=== PATIENT | male | born 1965 | race Caucasian/White ===

== ENCOUNTER 2016-10-09 08:42 | Inpatient (IN) | payer OTHER ==
--- NOTE | ~2016-10-09 | CO ---
Unit #: [id number] #: [id number] Patient: GRABIEL AHUJA [id number] [address] [place], [place] [address] [id number] MR#: [id number] NAME: GRABIEL AHUJA ROOM: [facility] Age: 51 Sex: M Admission Date: 10/09/2016 : 1965 Attending Physician: Krystle Blanchard M.D. Primary Care Physician: Blaine Narvaez M.D. Requesting Physician: Krystle Blanchard M.D. Consultation Date: 10/09/2016 CONSULTATION REPORT REASON FOR CONSULTATION Submassive acute pulmonary embolism. HISTORY OF PRESENT ILLNESS The patient is 51 years old with a history of a right lower extremity deep venous thrombosis approximately 20 years ago, for which he was anticoagulated with warfarin. He describes a delay in diagnosis, as this followed a traumatic injury. He was seen in the emergency room on 10/09/2016 complaining of a 2-week history of pain and swelling of his right calf, which actually has gotten better today. This is accompanied by a 5-day history of shortness of breath, productive cough, fever and chills, and as his children had had influenza, he attributed it to influenza symptoms. With pressure-like chest pain, he presented to the emergency room where he underwent CT angiogram of the chest after finding an elevated D-dimer. CT angiogram of the chest revealed a large pulmonary embolic burden with large saddle embolus across the main pulmonary artery with extension to the truncus anterior, right middle lobe segmental arteries and a complete occlusion of the right lower lobe pulmonary artery. He also had small mediastinal nodes. He has since been seen in consultation by cardiology who was planning an EKOS procedure, and Dr. Wu of pulmonary who plans to move him to the intensive care unit. Mr. Ahuja tells me that he is somewhat short of breath, but as soon as he exerts himself, ___<dictation goes blank>____ pressure-like chest pain. PAST MEDICAL HISTORY Prior history of DVT and pulmonary embolism, as discussed. No significant past medical problems. PAST SURGICAL HISTORY Finger surgery, tonsillectomy. FAMILY HISTORY No history of blood clots. SOCIAL HISTORY Smokes a pack a day. 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 Rarely drinks any alcohol. He is and lives with his who is a registered nurse. REVIEW OF SYSTEMS A 14-point review of systems was taken. CONSTITUTIONAL: No recent changes in appetite or weight. EYES: Negative. EARS, NOSE, MOUTH AND THROAT: Negative. CARDIOVASCULAR: Pressure-like chest pain, as discussed. No palpitations. Unit #: [id number] #: [id number] Patient: GRABIEL AHUJA RESPIRATORY: Shortness of breath. No (1) cough or hemoptysis. GASTROINTESTINAL: Negative. GENITOURINARY: Negative. NEUROLOGIC: Negative. ALLERGIC/LYMPHATICS: Negative. MUSCULOSKELETAL: Pain and discomfort in the right calf, which is actually now better. SKIN: Negative. PSYCHIATRIC: Negative. PHYSICAL EXAMINATION GENERAL: He is a pleasant, middle-aged man lying in bed in mild distress secondary to shortness of breath. VITALS: Temperature is 98.5, pulse 108, respirations 20, blood pressure 132/89. He weighs 298 pounds. BMI is 40. Pulse oximetry is 94% on oxygen. HEENT: Head examination shows pupils are equal and react well to light. Mucous membranes are moist. NECK: Neck without adenopathy, JVD or thyromegaly. CARDIOVASCULAR SYSTEM: First and second heart sounds were heard and regular with mild tachycardia. LUNGS: Chest expansion is symmetric. Bilateral equal entry with normal breath sounds. ABDOMEN: Abdomen is soft, nontender. Bowel sounds are active. No organomegaly. EXTREMITIES: Extremities are warm. He has mild swelling of his right calf in relation to the left with some calf tenderness. SKIN: Negative. ALLERGIC/LYMPHATICS: Negative. NEUROLOGIC: He is awake, alert and oriented x3. No focal findings. DIAGNOSTIC STUDIES LABS: BNP of 30. Troponin is 0.41. A ProTime is 10.7, INR 1, PTT 25. Basic metabolic panel shows a BUN of 17, creatinine 1.1. LFTs are normal. CBC shows a white count of 6.4, hemoglobin 15.8, platelets 146,000. IMAGING: CT angio of the chest was personally reviewed by me, and findings are as discussed. ASSESSMENT AND PLAN Mr. Grabiel Ahuja is 51 years old with history of DVT in the past, admitted with an acute right lower extremity DVT with acute submassive pulmonary embolism with a saddle thrombus. He is tachycardic and hypoxemic on room air with chest pain on exertion. He has been scheduled for an EKOS procedure, following which he will be transferred to the intensive care unit. He is currently on a heparin weight-based protocol. I discussed with the patient. I agree with plans for heparin weight-based protocol, EKOS and ICU transfer. After stable, may consider switching to a direct oral anticoagulant, preferably after 3-5 days of IV heparin. He is scheduled to have a Doppler study of the right lower extremity, and based upon the clot burden, he may be a candidate for (2) IVC filter, as well. Plans were discussed in detail with the patient, as well as the at bedside. Thank you for allowing me to participate in his care. Dictated by... Unit #: [id number] #: [id number] Patient: GRABIEL AHUJA Juju Cotton/eriberto TD: 10/10/2016 09:10 JOB #: [id number] CONSULTATION REPORT X Bonilla Perez MD X CONSULTATION REPORT
--- NOTE | ~2016-10-09 | CT16 ---
[facility] A Service of [facility] RADIOLOGY TEXT RESULTS PATIENT: NANCY COSME LOCATION: [facility] 577-01 : [birth year] UNIT #: [id number] AGE: [address]: Prisca Osorio MD SEX: M ORDER DR: [id number] [facility] [address] [facility]. [place], [place] [address] [id number] I MR#: [id number] Acc #: [id number] NAME: NANCY COSME : 1965 SEX: M STUDY DATE/TIME: 10/09/2016 10:12 [facility] 26115 STUDY DESCRIPTION: CT Angio Chest for PE Attending Physician: Krystle Blanchard M.D. Ordering Physician: Jorge Carr M.D. Primary Care Physician: Blaine Narvaez M.D. MEDICAL IMAGING REPORT This report is preliminary unless electronic signature is present EXAM CT angiography chest for PE. HISTORY Cough, short of air this a.m., history of PE and leg clots. Smoker. TECHNIQUE CT of the chest performed with CT pulmonary angiography with administration of 80 mL Isovue-370. Three-dimensional reconstructions performed through pulmonary arteries. This CT exam was performed with one or more of the following radiation dose reduction techniques: automatic exposure control, adjustment of mA and/or kV according to patient size, and iterative reconstruction. COMPARISON STUDIES No prior chest CTs for comparison. FINDINGS Visualized thyroid unremarkable. No axillary adenopathy. Bilateral mild and symmetric gynecomastia. Correlate with risk factors. Mildly enlarged mediastinal lymph nodes. There is an aortopulmonary window node measuring about 1.3 cm in short axis. Right paratracheal node measuring about 1.1 cm in short axis and subcarinal node measuring 1.2 cm in short axis. Followup recommended. Heart normal in size. No pleural effusions. Probable fatty infiltration of liver. No suspicious focal hepatic parenchymal abnormality. At the gallbladder fundus, there is a subtle area of rounded increased density measuring about 1.1 cm to 1.5 cm. This is in the anti-dependent portion of the gallbladder and is not have the typical appearance of a gallbladder polyp or gallstone. There is no adjacent inflammatory change. This may represent an unusual configuration of polyp or decompressed phrygian cap. In the absence of prior comparison studies, assessment with elective ultrasound recommended. No biliary STS. [facility] A Service of [facility] RADIOLOGY TEXT RESULTS PATIENT: NANCY COSME LOCATION: [facility] 577-01 : [birth year] UNIT #: [id number] AGE: [address]: Prisca Osorio MD SEX: M ORDER DR: ductal dilatation. Spleen, pancreas, adrenal glands, upper renal poles unremarkable. There is a 1.6 cm short-axis node superior to the pancreatic neck. The small bowel mesentery, partially visualized, shows some subtle mesenteric haziness and at least 1 mildly enlarged 9 mm short-axis lymph node. The esophagus, stomach, visualized segments of small bowel and colon are remarkable. Pulmonary parenchyma shows band-like area of density at the posterior right apex measuring about 4.9 cm x 1.6 cm x 2 cm. This is favored to represent an area of fibrosis or unusual area of apical pneumonia. Given findings of extensive pulmonary emboli, the possibility of apical pulmonary infarct is not excluded. Short interval followup recommended. 6-7 mm subpleural nodule posterior right upper lobe image 48. Followup recommended. 6 mm noncalcified pulmonary nodule superior segment right lower lobe image 51. Linear scarring right lung base posteriorly. Left upper lobe clear. Densely calcified granuloma in the left lung base posterolaterally. Noncalcified nodule left lung base posterolaterally near diaphragm measuring 7-8 mm in diameter. Subpleural nodular density posterior left lung base measuring 9 mm x 1.7 cm image 126. Again, a nonspecific appearance which could represent area of atelectasis, true nodule, or perhaps small area of pulmonary infarct. Pulmonary arteries are well opacified. Large pulmonary embolic burden with large saddle embolus across the main pulmonary arteries. On the right, there is extension into the truncus anterior. There is occlusion of the intralobar artery. There is thrombus extension into right middle lobe segmental arteries. Near-complete occlusion of the right lower lobe pulmonary artery with extension into multiple segmental and probably segmental and probably subsegmental right lower lobe pulmonary arteries. The clot burden is less pronounced but still significant on the left with thrombus extending into the left apical segmental pulmonary artery, anterior segmental pulmonary artery, with nonocclusive emboli in the lingular segmental pulmonary arteries and nonocclusive emboli in left lower lobe pulmonary artery and multiple proximal segmental pulmonary arteries. These findings were discussed directly with Dr. Willingham at 1049 hours during this dictation. There is evidence of right heart strain. The right ventricle is visually more pronounced than the left with an RV/LV ratio approximately 1.4. The aorta is well opacified without evidence of aneurysm or dissection. The visualized aortic branch vessels are patent. The bony structures show no acute abnormality. IMPRESSION 1. Abnormal examination. See complete dictation above for full details. Extensive bilateral pulmonary emboli. Findings discussed with Dr. Willingham at 1049 hours during this dictation. There is a large saddle embolus spanning the right and left main pulmonary arteries. Clot burden generally more pronounced in the right lung than the left. Involvement of right truncus anterior, right middle lobe pulmonary artery with occlusion of the right intralobar pulmonary artery and STS. [facility] A Service of [facility] RADIOLOGY TEXT RESULTS PATIENT: NANCY COSME LOCATION: [facility] 577-01 : [birth year] UNIT #: [id number] AGE: [address]: Prisca Osorio MD SEX: M ORDER DR: near occlusion of the right lower lobe pulmonary artery with extensive thrombus extension into right lower lobe segmental and probable subsegmental pulmonary arteries. In the left lung, there is significant but less pronounced clot burden. Near occlusive embolus seen in right upper lobe anterior segment, occlusive embolus in the left upper lobe segmental pulmonary artery. nonocclusive emboli in the superior and inferior lingular segmental arteries, and large but nonocclusive emboli in the left lower lobe pulmonary artery and proximal segmental pulmonary arteries. There is evidence of right heart strain with an RV/LV ratio of approximately 1.4. 2. Band-like area of subpleural airspace disease posterior-superior right lung apex measuring approximately 1.6 cm x 4.8 cm x 2 cm. Nonspecific appearance. This may represent an area of asymmetric subpleural fibrosis, unusual manifestation of pneumonia might be considered. Given the extent of embolic burden in this patient, an apical pulmonary infarct is in the differential diagnosis. Short interval followup recommended. 3. 6 mm noncalcified pulmonary nodule posterior right upper lobe image 48, 6 mm right lower lobe superior segment noncalcified nodule image 51, 9 mm x 1.7 cm noncalcified nodular density left lung base image 126, and 7-8 mm noncalcified nodule left lung base laterally image number 130. Nature of these non-calcified densities is unclear. The left posterior basilar finding could be atelectatic in nature or a small infarct. Short-interval 3-month CT followup strongly recommended to assess for short-term stability or resolution. If the dominant abnormalities increase in size or persist, I would recommend CT PET scan assessment to evaluate for potential neoplastic nodule. 4. Densely calcified granuloma at the left lung base. 5. Fatty infiltration of the liver. 6. Mildly enlarged mediastinal nodes, probably reactive in nature. See dimensions and locations above. Attention at followup recommended. 7. Mildly enlarged portal lymph node probably reactive in nature as well. Attention at followup recommended. 8. 1.1 cm x 1.5 cm density along the wall of the gallbladder fundus, not having typical appearance for gallstones or polyp. Atypical polyp is a consideration. Other types of gallbladder wall mass not excluded. Correlation with fasting gallbladder ultrasound recommended. 9. Bilateral gynecomastia. Correlate with risk factors. Dictated by... Luis Thayer M.D. THIS IS AN ELECTRONICALLY VERIFIED REPORT Luis Thayer M.D. at 10/11/2016 5:52 PM LAINA/reny TD: 10/09/2016 13:37 [facility]. [facility] A Service of [facility] RADIOLOGY TEXT RESULTS PATIENT: NANCY COSME LOCATION: [facility] 577-01 : [birth year] UNIT #: [id number] AGE: [address]: Prisca Osorio MD SEX: M ORDER DR: JOB #: [id number] MEDICAL IMAGING REPORT COPY
--- NOTE | ~2016-10-09 | HP ---
Unit #: [id number] #: [id number] Patient: NANCY COSME [id number] [address] [address] [id number] MR#: [id number] NAME: NANCY COSME ROOM: Age: 51 Sex: M Admission Date: 10/09/2016 : 1965 Attending Physician: Jorge Carr M.D. Primary Care Physician: Blaine Narvaez M.D. HISTORY AND PHYSICAL ADDENDUM Thirty one minutes critical care time spent in the care of this patient (12 o'clock to 12:31 p.m.). Dictated by Juju Acevedo/evelyn TD: 10/09/2016 13:05 JOB #: [id number] HISTORY AND PHYSICAL X Krystle Blanchard MD HISTORY AND PHYSICAL
--- NOTE | ~2016-10-09 | EKG ---
PATIENT: NANCY COSME UNIT #: [id number] Ventricular Rate: 102 BPM Atrial Rate: 102 BPM P-R Interval: 142 ms QRS Duration: 114 ms Q-T Interval: 352 ms QTC Calculation(Bezet): 458 ms P [place]: 73 degrees Calculated R [place]: 59 degrees Calculated T [place]: 21 degrees Diagnosis Line: Sinus tachycardia Diagnosis Line: Incomplete right bundle branch block Diagnosis Line: Nonspecific T wave abnormality Diagnosis Line: Abnormal ECG Diagnosis Line: No previous ECGs available Diagnosis Line: Confirmed by SHEILA RIVERA MD ([id number]) on Diagnosis Line: 10/10/2016 11:46:12 AM INTERPRETING MD: SANDEEP
--- NOTE | ~2016-10-09 | CO ---
Unit #: [id number] #: [id number] Patient: NANCY COSME [id number] [address] [place], [place] [address] [id number] I MR#: [id number] NAME: NANCY COSME ROOM: [facility] Age: 51 Sex: M Admission Date: 10/09/2016 : 1965 Attending Physician: Krystle Blanchard M.D. Primary Care Physician: Blaine Narvaez M.D. CONSULTATION REPORT REASON FOR CONSULTATION Pulmonary embolus. HISTORY OF PRESENT ILLNESS This is a 51-year-old white male, who presented to the emergency room with dyspnea. He was getting ready to take his children to school and had a sudden onset of dyspnea after a cough. He felt lightheaded and felt maybe he could pass out. His who is an RN took his oxygen saturation level which she states was 82%. They came to the emergency room for evaluation, where he had an elevated D-dimer of 9834. CTA of the chest revealed saddle pulmonary emboli with embolus in both left and right segmental and subsegmental lobes. Doppler study of his lower extremity was negative for deep vein thrombosis. The patient states he had a right DVT 20 years ago after an accident. He was heparinized in the hospital for 2 weeks and once discharge was started on Coumadin that he says went for a total of 6 months. He also revealed he has had some dyspnea for the past few days, but thought it was a flu. One of his daughters was diagnosed with influenza A. He denies a history of hypertension, hyperlipidemia, or diabetes. His risk factors for heart disease includes nicotine abuse and obesity. No prior cardiac testing. PAST MEDICAL HISTORY 1. Right DVT 20 years ago. 2. Obesity. 3. Active smoker. PAST SURGICAL HISTORY 1. Finger surgery. 2. Tonsillectomy. 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 He smokes a pack of cigarettes daily. He denies illicit drug or alcohol use. FAMILY HISTORY Father had a permanent pacemaker. Has a brother, who has hypertension and hyperlipidemia. REVIEW OF SYSTEMS CONSTITUTIONAL: Positive for recent fever and chills. Reports no weight gain or weight loss. HEENT: No headache, hearing or vision changes, or difficulty with swallowing. Complains of lightheadedness. Unit #: [id number] #: [id number] Patient: NANCY COSME CARDIOVASCULAR: Had chest pressure that accompanied dyspnea. Positive for nonproductive cough. No hemoptysis. GASTROINTESTINAL: No abdominal pain, nausea, or vomiting. No constipation or melena. EXTREMITIES: Has occasional right lower extremity edema. PHYSICAL EXAMINATION VITAL SIGNS: Blood pressure 129/86, heart rate 116, temperature 97.5. BMI 39. GENERAL: This is a 51-year-old obese, white male, who is in no acute distress. NEUROLOGIC: He is awake, alert, and oriented without focal weaknesses. NECK: Trachea is midline. No thyromegaly or lymphadenopathy. No jugular venous distention. HEART: S1 and S2. Heart sounds are normal. No murmurs. No rubs or clicks. Regular rate and rhythm, just tachycardic. LUNGS: Diminished breath sounds without rales, rhonchi, or wheezing. ABDOMEN: Soft and obese with bowel sounds present. No organomegaly. EXTREMITIES: With trace right lower extremity edema. DIAGNOSTIC STUDIES LABORATORY RESULTS: Hemoglobin 15.3, hematocrit 48.1, platelet count 146, white count 6.4. Sodium 142, potassium 4.5, BUN 17, creatinine 1.1, glucose 128. D-dimer 9834. Troponin less than 0.05. IMAGING STUDIES: Chest x-ray shows no active disease. CTA of the chest shows bilateral saddle pulmonary embolism with right heart strain. Bilateral lower extremity segmental and subsegmental emboli. CARDIOVASCULAR STUDIES: EKG shows sinus tachycardia with incomplete right bundle-branch block. IMPRESSION 1. Acute saddle pulmonary emboli. 2. Sinus tachycardia. 3. History of right deep vein thrombosis. 4. Obesity. 5. Nicotine abuse. PLAN 1. Cardiology was consulted for pulmonary emboli. The patient has been started on heparin drip. He is currently stable. 2. The patient needs EKOS for pulmonary embolism. He has had no recent head trauma, intracranial hemorrhage, and surgeries of any sort or urinary hemorrhage. He meets the criteria for EKOS. Risks, benefits, and procedure was explained to the patient and and they are agreeable. We will schedule for later today. 3. 2D echocardiogram is pending to verify right heart strain. Right heart strain was noted on CTA of the chest. 4. The patient will be monitored in the intensive care unit. Dictated by... Paulie Crane A.P.R.N. for Juju Dexter/ally Unit #: [id number] #: [id number] Patient: NANCY COSME TD: 10/09/2016 23:43 JOB #: [id number] CONSULTATION REPORT X Paulie Crane APRN X CONSULTATION REPORT
--- NOTE | ~2016-10-09 | DS ---
Unit #: [id number] #: [id number] Patient: NANCY COSME [address] [facility]. [place], [place] [address] [id number] I MR#: [id number] NAME: NANCY COSME ROOM: 577 Age: 51 Sex: M Admission Date: 10/09/2016 : 1965 Discharge Date: 10/12/2016 Attending Physician: Prisca Osorio M.D. Primary Care Physician: Blaine Narvaez M.D. DISCHARGE SUMMARY DIAGNOSIS ON ADMISSION Pulmonary embolism. DIAGNOSES ON DISCHARGE 1. Bilateral submissive pulmonary embolism. 2. Acute right lower extremity deep venous thrombosis. 3. Acute respiratory failure, resolved. 4. Right heart stent, resolved. 5. Hypertension. CONSULTATIONS 1. Dr. Chaparro - Cardiology consultation. 2. Dr. Wu - Pulmonary consultation. LABS AND PROCEDURES DONE The patient's creatinine is 1.1, sodium 139, potassium is 4.4. AST and ALT are within normal limits. WBC is 8.7, hemoglobin is 15.3, platelet count is 139. CT scan of chest revealed large saddle embolus panning the right and left main pulmonary artery. Clot burden generally more pronounced on the right than the left. There was a 6 mm noncalcified pulmonary nodule in the posterior right upper lobe image. Fatty infiltration of liver. There was 1.1 cm x 1.5 cm density along the wall of gallbladder fundus, not having particular appearance of gallstone or polyp. Atypically, a polyp is a consideration. Other types of gallbladder wall mass cannot be excluded. Blood culture did not reveal any growth. Bilateral lower extremity venous Dopplers revealed near occlusive deep vein thrombosis involving the right superficial femoral and popliteal vein. Influenzae A and B screen was negative. Troponin was 0.41. HOSPITAL COURSE 51-year-old male presented to [facility] with shortness of air. Details are as per admission H and P. The patient was diagnosed with bilateral saddle PE and also has a right lower extremity DVT. The patient received EKOS treatment. The patient is feeling much better and today wants to go home. On physical examination today, vital signs reveal temperature of 97.9, Unit #: [id number] #: [id number] Patient: NANCY COSME pulse is 86 per minute, respiratory rate is 18 per minute, blood pressure is 121/83. HEENT examination reveals no conjunctival congestion. Sclerae is not icteric. NECK is supple. Trachea is central. RESPIRATORY examination revealed breath sounds equal bilaterally. There are no wheezes or crackles. HEART is regular rate and rhythm. S1, S2. ABDOMEN is soft, nontender. Bowel sounds are present in all four quadrants. NEUROLOGICALLY, the patient is alert to person, place and time. Power is 5 out of 5 bilaterally. Sensations are grossly intact. SKIN is warm and dry. RECOMMENDATIONS ON DISCHARGE 1. Condition is stable. 2. Activity as tolerated. MEDICATIONS 1. Tylenol 650 mg q.4 hours p.r.n. pain. 2. Xarelto 15 mg p.o. b.i.d. for three weeks and then 20 mg p.o. daily. 3. Lopressor 25 mg p.o. b.i.d. 4. Patient was encouraged to quit smoking. FOLLOWUP Patient is advised to follow up with primary care physician in one week and have a CBC and BMP done and follow with pulmonary and cardiology as recommended. The patient was also advised to follow up with Dr. Mijares as recommended who has seen patient today, and is advised to follow up as an outpatient. The plan was discussed in detail with the patient who showed complete understanding. Please make note - patient is very adamant to go home today as he feels good. Please make note - patient had a 2D echocardiogram done which revealed ejection fraction of 65%. There was severely dilated right ventricle present and there is mild to moderate tricuspid regurgitation also present. Echo was suspicious of PE. Dictated by... Juju Soler/willis TD: 10/12/2016 10:52 JOB #: [id number] CC: Kendell [place] M.D. Unit #: [id number] #: [id number] Patient: NANCY COSME DISCHARGE SUMMARY X Prisca Osorio MD DISCHARGE SUMMARY
--- NOTE | ~2016-10-09 | HP ---
Unit #: [id number] #: [id number] Patient: NANCY COSME [id number] [facility] [address] [facility]. [place], [place] [address] [id number] MR#: [id number] NAME: NANCY COSME ROOM: Age: 51 Sex: M Admission Date: 10/09/2016 : 1965 Attending Physician: Jorge Carr M.D. Primary Care Physician: Blaine Narvaez M.D. HISTORY AND PHYSICAL CHIEF COMPLAINT Short of air, cough. HISTORY OF PRESENT ILLNESS The patient is a 51-year-old male with past medical history of DVT/PE, who presented to the emergency department for evaluation of the above. The patient states that he has had a two-week history of pain in the right calf. He was seen in the emergency department on September 17, 2016. Venous Doppler was done at that time and showed no evidence of DVT in the right lower extremity. He also reports a four to five day history of shortness of breath, occasionally productive cough, body aches, fever and chills. He states that his daughters were diagnosed with influenza A on October 06, 2016. He attributed the symptoms to the flu. He also has had intermittent chest pain that he describes as "pressure." He presented to the emergency department today due to worsening shortness of breath. In the emergency department, initial pulse and blood pressure were 100 and 142/71 respectively. Oxygen saturation was 92% on room air. D-dimer was elevated. A CT of the chest, PE protocol, was done and showed saddle embolus with evidence of right heart strain. He is being admitted to [facility] for evaluation and further treatment. PAST MEDICAL HISTORY History of DVT/PE around 20 years ago. He was on Coumadin for an unknown duration. He never had a hypercoagulable workup. PAST SURGICAL HISTORY 1. Finger surgery. 2. Tonsillectomy. SOCIAL HISTORY The patient lives with his . He smokes a pack of cigarettes daily. 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 There is no alcohol use. FAMILY HISTORY Notable for his dad having a pacemaker. He is on blood thinner but the patient thinks that may be related to irregular heart beat. ALLERGIES None. HOME MEDICATIONS 1. Zyrtec. Unit #: [id number] #: [id number] Patient: NANCY COSME 2. Motrin. Home medications will need to be reviewed and verified. REVIEW OF SYSTEMS A 10-point review of systems is negative except as indicated in the HPI. DIAGNOSTIC STUDIES LABORATORY: Complete blood count is completely normal. Troponin is less than 0.05. Rapid flu screen is negative. Comprehensive metabolic panel notable for glucose of 128. INR is 1. D-dimer is 9834. IMAGING: CT of the chest, PE protocol, shows a saddle pulmonary embolus with evidence of right heart strain. CARDIOVASCULAR: EKG showed sinus tachycardia with a rate of 102 beats per minute. PHYSICAL EXAMINATION VITAL SIGNS: Temperature 97.5, pulse 100, respirations 22, blood pressure 142/71, oxygen saturation is 92% on room air. GENERAL: The patient is a male who is awake and alert. HEENT: The head is atraumatic. Mucous membranes are moist. NECK: Supple. Trachea is midline. CARDIOVASCULAR: Regular rate and rhythm. LUNGS: Clear to auscultation bilaterally. The patient is mildly short of breath with conversation. ABDOMEN: Soft, nontender with bowel sounds present in all four quadrants. EXTREMITIES: The right cath is slightly tender to palpation. There is no pitting edema. NEUROLOGIC: The patient is awake and alert. He follows commands. PSYCHIATRIC: Mood and affect are normal. The patient is cooperative. SKIN: Generally diaphoretic. ASSESSMENT The patient is a 51-year-old male with: 1. Saddle pulmonary embolus with evidence of right heart strain. I have spoken with Dr. Wu as well as Dr. Diaz regarding this patient. They agree to see him in consultation. He may benefit from EKOS. 2. Right calf pain: The patient had a negative venous Doppler on September 17, 2016. 3. History of pulmonary embolus/deep venous thrombosis. 4. Tobacco abuse. PLAN 1. Admit to intensive care unit. 2. NPO for possible EKOS procedure. 3. Normal sinus rhythm at 75 mL an hour. 4. Heparin drip per protocol. 5. High-intensity bolus as indicated to start now. 6. Consult Dr. Wu regarding saddle pulmonary embolus. 7. Consult Dr. Chaparro regarding saddle pulmonary embolus with right heart strain and possible need for EKOS. 8. STAT 2D echo. 9. Consult Dr. Lackey regarding pulmonary embolus. 10. Bilateral lower extremity venous Dopplers. 11. Serial cardiac enzymes. 12. Oxygen 2-4 L to maintain saturations greater than 92%. Unit #: [id number] #: [id number] Patient: NANCY COSME 13. Repeat labs in the morning. 14. Regarding code status, the patient is a full code. 15. Additional workup and consultants based on above. Dictated by Juju Acevedo TD: 10/09/2016 12:51 JOB #: [id number] HISTORY AND PHYSICAL X Krystle Blanchard MD HISTORY AND PHYSICAL
--- NOTE | ~2016-10-09 | CR72 ---
[facility] A Service of [facility] RADIOLOGY TEXT RESULTS PATIENT: NANCY COSME LOCATION: [facility] 577-01 : [birth year] UNIT #: [id number] AGE: [address]: Prisca Osorio MD SEX: M ORDER DR: [id number] [facility] [address] [facility]. [place], [place] [address] [id number] E MR#: [id number] Acc #: [id number] NAME: NANCY COSME : 1965 SEX: M STUDY DATE/TIME: 10/09/2016 8:03 UNIT: [facility] ROOM: STUDY DESCRIPTION: CR Chest Single View Portable Attending Physician: Jorge Carr M.D. Ordering Physician: Jorge Carr M.D. Primary Care Physician: Blaine Narvaez M.D. MEDICAL IMAGING REPORT This report is preliminary unless electronic signature is present EXAM Portable chest x-ray 10/09/2016 HISTORY Shortness of air, cough, short of air. Both daughters have flu. Patient had PE on . TECHNIQUE 2 AP radiographs of the chest are presented COMPARISON No prior studies for comparison FINDINGS The heart is upper limits of normal in size. The lungs are well inflated without evidence of acute infectious or inflammatory disease. No pleural effusion or pneumothorax. 1.8 cm nodular density projecting over the left lung base. This is probably a calcified and probably represents a calcified nodule but I cannot state this with surety. In the absence of prior studies demonstrating prolonged at least 2-year stability, full assessment with elective chest CT recommended. No acute bony abnormality. Dictated by... Luis Thayer M.D. THIS IS AN ELECTRONICALLY VERIFIED REPORT Luis Thayer M.D. at 10/11/2016 7:55 AM JSK/to TD: 10/09/2016 11:54 JOB #: [id number] [facility] A Service of [facility] RADIOLOGY TEXT RESULTS PATIENT: NANCY COSME LOCATION: [facility] 577-01 : [birth year] UNIT #: [id number] AGE: [address]: Prisca Osorio MD SEX: M ORDER DR: MEDICAL IMAGING REPORT COPY
--- NOTE | ~2016-10-09 | CO ---
Unit #: [id number] #: [id number] Patient: NANCY AHUJA [id number] [facility] [address] [facility]. [place], [place] [address] [id number] I MR#: [id number] NAME: NANCY AHUJA ROOM: 577 Age: 51 Sex: M Admission Date: 10/09/2016 : 1965 Attending Physician: Prisca Osorio M.D. Primary Care Physician: Blaine Narvaez M.D. Consultation Date: 10/10/2016 CONSULTATION REPORT REASON FOR CONSULT Right leg DVT. HISTORY OF PRESENT ILLNESS This is a 51-year-old male admitted to [facility] with increasing shortness of breath. CTA imaging demonstrated pulmonary embolism. Lower extremity ultrasound demonstrated right superficial femoral vein and popliteal vein near occlusive DVT. He has since undergone EKOS thrombolysis. The EKOS catheter was removed this morning, and he is currently on bedrest from the right groin puncture. Mr. Ahuja has a history of having a right leg DVT about 20 years ago following a construction incident where a large mound of earth hit his leg resulting in swelling and ultimately DVT development. He was managed with warfarin for a period of six months after that. Mr. Ahuja reports having no one in his family identified with any type of blood clotting disorders. Mr. Ahuja is unaware of any ongoing cancer or other hypercoagulable state. PAST MEDICAL HISTORY 1. Deep venous thrombosis. 2. Smoking. ALLERGIES No known drug allergies. MEDICATIONS Acetaminophen every 4 hours as needed. SOCIAL HISTORY Patient lives at home. He has a history of smoking one pack of cigarettes daily, although he has recently cut back in the last three weeks to about a pack a week. He denies alcohol or drug use. FAMILY HISTORY Mother and father both alive and well. No history of blood clotting disorders. REVIEW OF SYSTEMS CONSTITUTIONAL: No fever, chills, or sweats. EYES: No recent visual problems. EARS/NOSE/MOUTH/THROAT: No ear pain, nasal congestion, or sore throat. RESPIRATORY: Shortness of breath upon exertion on admission, since resolved. CARDIOVASCULAR: No chest pain, palpitations, or syncope. GASTROINTESTINAL: No nausea, vomiting, or diarrhea. Unit #: [id number] #: [id number] Patient: NANCY AHUJA GENITOURINARY: No hematuria. HEMATOLOGIC/LYMPHATIC: Negative for bruising. No swollen lymph glands. ENDOCRINE: No excessive thirst or hunger. MUSCULOSKELETAL: No back pain, neck pain, joint pain, muscle pain, or decreased range of motion. INTEGUMENTARY: No sores or nonhealing wounds. NEUROLOGICAL: Alert and oriented x3. PSYCHIATRIC: No anxiety, depression, or suicidal thoughts. PHYSICAL EXAMINATION VITAL SIGNS: Temperature 98, heart rate 73, respirations 15, and blood pressure 125/83. GENERAL APPEARANCE: This is a well-developed, well-nourished male in no acute distress. Good mood. Appropriate affect. Parents are in the room during the examination. Currently on bedrest from recent right groin sheath removal. HEENT: Normocephalic. Pupils equal, round, and reactive to light. NECK: No carotid bruits noted. CARDIAC: Regular rate and rhythm. No murmurs. LUNGS: Clear to auscultation. Nonlabored. No use of accessory muscle. Patient is on two liters nasal cannula oxygenation. ABDOMEN: Positive bowel sounds. Abdomen is soft and nontender. No distention. MUSCULOSKELETAL: Moves all extremities with full range of motion. UPPER EXTREMITIES: No deformities noted. No edema. LOWER EXTREMITIES: Dependent edema present in the right lower extremity. VASCULAR: Palpable radial, femoral, and DP/PT pulses bilaterally. INTEGUMENTARY: Skin is warm and dry. No obvious sores, lesions, or nonhealing wounds. NEUROLOGICAL: Cranial nerves II-XII grossly intact. Patient has normal strength and sensation bilaterally. PSYCHIATRIC: Patient is oriented to person, place, and time. DIAGNOSTIC STUDIES LABORATORY: Sodium 140, potassium 4.7, chloride 107, CO2 of 24, BUN 18, creatinine 0.8, and glucose 120. Hemoglobin 14.8, hematocrit 46.2, WBC 12.9, and platelets 135,000. PTT 28.6 and INR 1.2. IMAGING: Right lower extremity ultrasound demonstrates right superficial femoral vein and popliteal vein DVT. ASSESSMENT 1. Pulmonary embolism, status post EKOS thrombolysis. 2. Right leg deep venous thrombosis. PLAN Agree with anticoagulation. Patient is already on Xarelto and Care Management is in the process of pricing Xarelto. If this proves to be too expensive, patient will be switched to warfarin. We discussed with Mr. Ahuja the possibility of anticoagulation of six months versus lifelong anticoagulation. Since this is his first offense of a non-provoked deep vein thrombosis, we could consider discontinuing anticoagulation after a period of six months. However, the risk of future DVT and possible PE would be indeterminant. At this time, patient will not require an inferior vena cava filter as he has no contraindications for anticoagulation. We would recommend that he begin to wear compression stocking rated at 20-30 mmHg to reduce swelling of his right lower extremity. We also recommend that he undergo a full cancer workup Unit #: [id number] #: [id number] Patient: NANCY AHUJA including colonoscopy as he has never had a colonoscopy before. Thank you for allowing us to participate in the care of this patient. Dictated by... Joshua Allen APRN for Juju Ruiz/jose armando TD: 10/10/2016 20:15 JOB #: [id number] CONSULTATION REPORT X X CONSULTATION REPORT
--- NOTE | ~2016-10-09 | US89 ---
[facility] A Service of [facility] RADIOLOGY TEXT RESULTS PATIENT: NANCY COSME LOCATION: [facility] 577-01 : [birth year] UNIT #: [id number] AGE: [address]: Prisca Osorio MD SEX: M ORDER DR: [id number] [facility] [address] [facility] [address] [place], [place] [address] [id number] I MR#: [id number] Acc #: [id number] NAME: NANCY COSME : 1965 SEX: M STUDY DATE/TIME: 10/11/2016 15:49 UNIT: [facility] ROOM: [facility] STUDY DESCRIPTION: US Lower Ext Arterial Exam Attending Physician: Prisca Osorio M.D. Ordering Physician: Bonilla Perez M.D. Primary Care Physician: Blaine Narvaez M.D. MEDICAL IMAGING REPORT This report is preliminary unless electronic signature is present EXAM Bilateral lower extremity vascular ultrasound HISTORY Bilateral lower extremity pain for 2 weeks. Smoker. FINDINGS Lower extremity ultrasound of the arterial structures performed bilaterally. Color Doppler, Doppler pulse wave interrogation utilized. Colon-scale images obtained. Right common femoral artery patent. Peak systolic velocity 99 cm/sec. Right superficial femoral artery patent, peak systolic velocity 42.4 cm proximally. The mid right superficial femoral artery shows peak systolic velocity 101.5 cm/sec. The distal superficial femoral artery is patent with peak systolic velocity 80.3 cm/sec. Right popliteal artery patent with peak systolic velocity 48.9 cm/sec. Posterior tibial artery patent with peak systolic velocity 90.4 cm/sec. Peroneal artery and anterior tibial arteries patent. Director Sales Training did not determine peak systolic velocities in these vessels. On the left, the common femoral artery is patent with peak systolic velocity 100.8 cm/sec. The profunda femoris and superficial femoral arteries are patent. Proximal left superficial femoral artery peak systolic velocity 99.6 cm/sec. Mid superficial femoral artery peak systolic velocity 99.6 cm/sec and distal superficial femoral artery peak systolic velocity 82.3 cm/sec. The left popliteal artery appears widely patent with peak systolic velocity 42.1 cm/sec. Posterior tibial artery patent with peak systolic velocity 97.2 cm/sec. Peroneal artery and anterior tibial arteries patent. Director Sales Training did not record peak systolic velocities. IMPRESSION 1. Major arterial structures in bilateral lower extremities appear widely patent in their visualized extent. No significant STS. [facility] A Service of [facility] RADIOLOGY TEXT RESULTS PATIENT: NANCY COSME LOCATION: [facility] 577-01 : [birth year] UNIT #: [id number] AGE: [address]: Prisca Osorio MD SEX: M ORDER DR: atherosclerotic plaque is seen. No findings to raise suspicion for arterial aneurysm or arteriovenous malformation/fistula. 2. Please see peak systolic velocities in body of report above. Dictated by... Juju Fung/zuleyma TD: 10/11/2016 22:41 JOB #: [id number] MEDICAL IMAGING REPORT
--- NOTE | ~2016-10-09 | BMI ---
[facility] Nutrition Therapy DATE: 10/10/16 Patient: NANCY COSME Physician: BRITANY Address: [address] Room/Bed: [address], Zip: [place] [address] Admit Date: 10/09/16 Date of : [birth year] Height: 6 0 Weight: 302 137 HIGH BMI NOTE: DX: 51 y/o male admitted with SOA and cough ANTHROPOMETRICS: Ht: 72", Wt: 137 kg, BMI: 40 DIET: Healthy heart INTERVENTION: Restricted diet, meds/fluids per MD RECOMMENDATIONS: Continue current diet to promote a gradual weight loss towards a healthy BMI range. Respectfully, Gloria Shook RD, LD [employer] [facility] [employer] cc: client file
--- NOTE | ~2016-10-09 | US84 ---
[id number] [facility] [address] [place], [place] [address] [id number] I MR#: [id number] [facility] #: [id number] NAME: NANCY COSME : 1965 SEX: M STUDY DATE/TIME: 10/09/2016 19:30 UNIT: [facility] ROOM: [facility] STUDY DESCRIPTION: US LE Veins Complete Sunday Stdy Attending Physician: Krystle Blanchard M.D. Ordering Physician: Krystle Blanchard M.D. Primary Care Physician: Blaine Narvaez M.D. MEDICAL IMAGING REPORT This report is preliminary unless electronic signature is present REVISED REPORT EXAM Bilateral lower extremity duplex Doppler venous ultrasound COMPARISON September 17, 2016. INDICATIONS 51-year-old male with right calf pain for 2 weeks. Pulmonary embolus found today on CT angiography of the chest. FINDINGS Right common femoral and greater saphenous veins are not seen due to patient's indwelling EKOS device. There is normal color flow and waveform seen in the deep femoral vein, which appears compressible. Proximal right superficial femoral vein appears compressible but demonstrates diminished internal color flow. The mid right superficial femoral vein is compressible with diminished internal color flow. The distal right superficial femoral vein is compressible with some diminished internal color flow, with more flow seen in this segment than in the mid or proximal superficial femoral vein. The right popliteal vein is noncompressible with diminished internal color flow. There is color flow in the right posterior tibial, peroneal and anterior tibial veins. The right greater saphenous vein is fully compressible. Left common femoral and greater saphenous veins are fully compressible. The left superficial femoral and deep femoral veins are fully compressible with normal internal color flow. Left popliteal vein is fully compressible with normal internal color flow. The left anterior tibial, posterior tibial and peroneal veins are not well seen. The left greater saphenous vein is compressible below the ankle. IMPRESSION 1. Negative for deep venous thrombosis in the left lower extremity. 2. Near-occlusive deep venous thrombosis involving the right superficial femoral and popliteal veins. Please note that the right common femoral vein and proximal greater saphenous vein are not well evaluated due to the patient's indwelling EKOS device. *DICTATOR MODIFIED* Dictated by... Richardson Wahl M.D. THIS IS AN ELECTRONICALLY VERIFIED REPORT Richardson Wahl M.D. at 10/11/2016 1:00 PM BLM/psc TD: 10/10/2016 03:42 JOB #: [id number] CC: Naty/nydia Please Delete MEDICAL IMAGING REPORT COPY
--- NOTE | ~2016-10-09 | CO ---
Unit #: [id number] #: [id number] Patient: NANCY COSME [id number] [address] [address] [id number] I MR#: [id number] NAME: NANCY COSME ROOM: 48622 Age: 51 Sex: M Admission Date: 10/09/2016 : 1965 Attending Physician: Krystle Blanchard M.D. Primary Care Physician: Blaine Narvaez M.D. Consultation Date: 10/09/2016 CONSULTATION REPORT REASON FOR CONSULT ICU management. CHIEF COMPLAINT Shortness of breath. HISTORY OF PRESENT ILLNESS This is a very pleasant 51-year-old male with past medical history significant only for extensive smoking and GERD who presented to the emergency room with respiratory distress. The patient stated that for the last 2 days he was having low-grade fever and feeling short of breath. He though he had the flu because both kids had it last week, so the patient was resting at home. Early this morning the patient tried to get up and go to his truck when, all of a sudden, he felt severely short of breath and almost passed out. He was very diaphoretic and almost blue. He called his immediately who arrived there in a few minutes. She found his sats to be 89%. The patient stated that 2 weeks ago he presented to the emergency room with sudden onset of right calf pain. He denied any trauma or accident. He was given some xiwz-nie-runulnd pain medicine and was told to follow up with his primary care physician. Of note, the patient had right lower extremity DVT 20 years ago after trauma. 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 He snores at night but not witnessed apnea. PAST MEDICAL HISTORY 1. GERD. 2. Arthritis. PAST SURGICAL HISTORY Left hand minor procedure. SOCIAL HISTORY The patient smokes 2 packs per day for the last 30 years. No history of alcohol or drug abuse. ALLERGIES No known drug allergies. FAMILY HISTORY Unit #: [id number] #: [id number] Patient: NANCY COSME No history of clotting disorders to the patient's knowledge. REVIEW OF SYSTEMS Twelve-point review of systems was obtained and was negative except for what was mentioned in the HPI. PHYSICAL EXAMINATION GENERAL: The patient is in mild respiratory distress. VITAL SIGNS: Blood pressure 115/62, heart rate 115, O2 saturation 94% on 2 liters nasal cannula. HEENT: Atraumatic, normocephalic. PERRLA, EOMI. NECK: Supple. No JVD. No lymphadenopathy. CHEST: Decreased breath sounds bilaterally. HEART: S1, S2. No murmur, gallops or rubs. ABDOMEN: Soft, nontender. Bowel sounds positive. No hepatosplenomegaly. EXTREMITIES: No edema in the left lower extremity, but there is +1 edema in the right lower extremity. [place]ER TRAWL NET: Awake, alert, oriented x3. No focal motor/sensory deficits. SKIN: No rashes. DIAGNOSTIC STUDIES LABORATORY: Creatinine 1.1, sodium 142. IMAGING: CT angiogram is consistent with saddle emboli with multiple small emboli. ASSESSMENT 1. Acute hypoxic respiratory failure. 2. Submassive PE. 3. Smoking. 4. GERD. 5. Arthritis. PLAN 1. The patient is critical, needs to be watched in the ICU very closely. 2. STAT two-D echo to evaluate officially for right heart strain. 3. Will evaluate the patient for systemic thrombolytics versus direct thrombolytics through EKOS. 4. Keep patient NPO. Will hydrate very gently to avoid any congestive heart failure exacerbation. 5. Heparin drip for now. 6. Will evaluate the patient for oral anticoagulation when he is ready for discharge. NOTE: Critical care time spent on this patient was 36 minutes. Dictated by... Juju Calvin TD: 10/09/2016 15:19 JOB #: [id number] Unit #: [id number] #: [id number] Patient: NANCY COSME CONSULTATION REPORT X JORGE LUIS MESA MD CONSULTATION REPORT
[2016-10-09 08:06] LABS: BASOPHIL# 0.1 X10e3 (0-0.3); BASOPHIL% 0.9 % (0-2.5); EOSINOPHIL# 0.3 X10e3 (0-0.7); EOSINOPHIL% 4.7 % (0.0-7.0); HEMATOCRIT 48.1 % (38.0-50.0); HEMOGLOBIN 15.8 gm/dL (13.0-16.0); LYMPHOCYTE# 1.9 X10e3 (1.0-3.5); LYMPHOCYTE% 30.4 % (17.0-45.0); MEAN CELL VOLUME 90.7 FL (83-96); MEAN CORPUSCULAR HEMOGLOBIN 29.7 PG (28-34); MEAN CORPUSCULAR HGB CONC 32.8 g/dL (30-36); MEAN PLATELET VOLUME 9.7 FL (6.5-11.5); MONOCYTE# 0.7 X10e3 (0-1.0); MONOCYTE% 10.3 % (3.0-12.0); NEUTROPHIL# 3.4 X10e3 (1.5-7.1); NEUTROPHIL% 53.7 % (40-75); PLATELET COUNT 146 X10e3 (140-420); RED CELL DISTRIBUTION WIDTH 13.4 % (11.0-15.5); WHITE BLOOD COUNT 6.4 X10e3 (4.0-10.5)
[2016-10-09 08:10] LABS: POC - CKMB 1.2 ng/mL (0.0-7.9); POC - TROPONIN <0.05 ng/mL (<=0.05)
[2016-10-09 08:10] LABS: DIFF IND NO
[2016-10-09 08:23] LABS: INFLUENZA A NEG (NEG); PROTHROMBIN TIME (PATIENT) 10.7 SECONDS (9.6-11.5)
[2016-10-09 08:24] LABS: INFLUENZA B NEG (NEG)
[2016-10-09 08:39] LABS: ALBUMIN SERUM 3.8 g/dL (3.5-5.0); ALKALINE PHOSPHATASE 52 U/L (32-92); ALT (SGPT) 30 U/L (10-40); AST (SGOT) 22 U/L (10-42); BILIRUBIN, DIRECT 0.1 mg/dL (0.0-0.2); BILIRUBIN,INDIRECT 0.4 mg/dL (0.0-0.9); BILIRUBIN,TOTAL 0.5 mg/dL (0.2-2.0); BLOOD UREA NITROGEN 17 mg/dL (9-23); BUN/CREATININE RATIO 15.45; CALCIUM SERUM 8.8 mg/dL (8.4-10.2); CARBON DIOXIDE 25 mmol/L (22-31); CHLORIDE 107 mmol/L (100-111); CREATININE SERUM 1.1 mg/dL (0.6-1.4); GLOM FILT RATE Estimated ABOVE60 mL/min (>60); GLUCOSE FASTING 128 mg/dL (70-110); POTASSIUM 4.5 mmol/L (3.5-5.1); PROTEIN TOTAL SERUM 7.4 g/dL (6.0-8.3); SODIUM 142 mmol/L (135-145)
[2016-10-09 16:31] LABS: %MB 5.5 % (0.0-4.0); MB 5.2 ng/ml
[2016-10-09] MEDS ORDERED: ACETAMINOPHEN PO (18:19)
[2016-10-09 21:39] LABS: %MB 7.2 % (0.0-4.0); MB 6.5 ng/ml
[2016-10-10 04:22] LABS: HEMATOCRIT 46.2 % (38.0-50.0); HEMOGLOBIN 14.8 gm/dL (13.0-16.0); MEAN CORPUSCULAR HEMOGLOBIN 28.9 PG (28-34); MEAN CORPUSCULAR HGB CONC 32.1 g/dL (30-36); MEAN PLATELET VOLUME 9.3 FL (6.5-11.5); RED BLOOD COUNT 5.13 X10e (3.90-5.60); RED CELL DISTRIBUTION WIDTH 13.5 % (11.0-15.5)
[2016-10-10 04:23] LABS: WHITE BLOOD COUNT 12.9 X10e3 (4.0-10.5)
[2016-10-10 04:46] LABS: INR 1.2; PARTIAL THROMBOPLASTIN TIME 29.2 SECONDS (23.5-31.3); PROTHROMBIN TIME (PATIENT) 12.2 SECONDS (9.6-11.5)
[2016-10-10 04:58] LABS: ALBUMIN SERUM 3.4 g/dL (3.5-5.0); ALKALINE PHOSPHATASE 48 U/L (32-92); ALT (SGPT) 28 U/L (10-40); AST (SGOT) 22 U/L (10-42); BILIRUBIN,TOTAL 0.4 mg/dL (0.2-2.0); BLOOD UREA NITROGEN 18 mg/dL (9-23); CALCIUM SERUM 8.5 mg/dL (8.4-10.2); CARBON DIOXIDE 24 mmol/L (22-31); CHLORIDE 107 mmol/L (100-111); CREATININE SERUM 0.8 mg/dL (0.6-1.4); GLOM FILT RATE Estimated ABOVE60 mL/min (>60); GLUCOSE FASTING 120 mg/dL (70-110); POTASSIUM 4.7 mmol/L (3.5-5.1); PROTEIN TOTAL SERUM 6.4 g/dL (6.0-8.3); SODIUM 140 mmol/L (135-145)
[2016-10-11 07:36] LABS: BASOPHIL# 0.1 X10e3 (0-0.3); BASOPHIL% 0.6 % (0-2.5); DIFF IND NO; EOSINOPHIL# 0.1 X10e3 (0-0.7); EOSINOPHIL% 1.6 % (0.0-7.0); HEMATOCRIT 44.8 % (38.0-50.0); HEMOGLOBIN 14.6 gm/dL (13.0-16.0); LYMPHOCYTE# 2.7 X10e3 (1.0-3.5); LYMPHOCYTE% 31.1 % (17.0-45.0); MEAN CORPUSCULAR HEMOGLOBIN 29.3 PG (28-34); MEAN CORPUSCULAR HGB CONC 32.6 g/dL (30-36); MEAN PLATELET VOLUME 9.8 FL (6.5-11.5); MONOCYTE# 0.8 X10e3 (0-1.0); MONOCYTE% 9.2 % (3.0-12.0); NEUTROPHIL% 57.5 % (40-75); PLATELET COUNT 120 X10e3 (140-420); RED BLOOD COUNT 4.98 X10e (3.90-5.60); RED CELL DISTRIBUTION WIDTH 13.6 % (11.0-15.5); WHITE BLOOD COUNT 8.8 X10e3 (4.0-10.5)
[2016-10-11 08:07] LABS: BLOOD UREA NITROGEN 16 mg/dL (9-23); CALCIUM SERUM 8.6 mg/dL (8.4-10.2); CARBON DIOXIDE 27 mmol/L (22-31); CHLORIDE 104 mmol/L (100-111); CREATININE SERUM 0.8 mg/dL (0.6-1.4); GLOM FILT RATE Estimated ABOVE60 mL/min (>60); GLUCOSE FASTING 88 mg/dL (70-110); POTASSIUM 4.3 mmol/L (3.5-5.1); SODIUM 137 mmol/L (135-145)
[2016-10-12 07:26] LABS: HEMATOCRIT 46.3 % (38.0-50.0); HEMOGLOBIN 15.3 gm/dL (13.0-16.0); MEAN CELL VOLUME 89.1 FL (83-96); MEAN CORPUSCULAR HEMOGLOBIN 29.4 PG (28-34); MEAN PLATELET VOLUME 9.9 FL (6.5-11.5); RED BLOOD COUNT 5.19 X10e (3.90-5.60); RED CELL DISTRIBUTION WIDTH 13.5 % (11.0-15.5); WHITE BLOOD COUNT 8.7 X10e3 (4.0-10.5)
[2016-10-12 08:00] LABS: BLOOD UREA NITROGEN 15 mg/dL (9-23); BUN/CREATININE RATIO 13.63; CALCIUM SERUM 8.7 mg/dL (8.4-10.2); CARBON DIOXIDE 25 mmol/L (22-31); CHLORIDE 105 mmol/L (100-111); CREATININE SERUM 1.1 mg/dL (0.6-1.4); GLOM FILT RATE Estimated ABOVE60 mL/min (>60); GLUCOSE FASTING 91 mg/dL (70-110); POTASSIUM 4.4 mmol/L (3.5-5.1); SODIUM 139 mmol/L (135-145)
[2016-10-12] MEDS ORDERED: XARELTO15 MG PO (13:28)
[2016-10-12] MEDS ORDERED: METOPROLOL TAR25 MG PO (13:29)
== END 2016-10-12 16:04 | disposition home or self-care (01) | DRG 175 ==
LOC: CED 08:42 → CEDOF 12:15 → CICCU2 17:20 → C5C 10-10 19:48
PROVIDERS: Emergency Medicine; Family Medicine; Internal Medicine; Internal Medicine Pulmonary Disease
PROC: B246YZZ Ultrasonography of Right and Left Heart using Other Contrast (ICD-10-PCS; principal; 2016-10-09)
PROC: B32TYZZ Computerized Tomography (CT Scan) of Left Pulmonary Artery using Other Contrast (ICD-10-PCS; 2016-10-09)
PROC: B32SYZZ Computerized Tomography (CT Scan) of Right Pulmonary Artery using Other Contrast (ICD-10-PCS; 2016-10-09)
PROC: 3E04317 Introduction of Other Thrombolytic into Central Vein, Percutaneous Approach (ICD-10-PCS; 2016-10-09)
DX: I26.92 Saddle embolus of pulmonary artery without acute cor pulmonale (principal); J96.01 Acute respiratory failure with hypoxia; I82.411 Acute embolism and thrombosis of right femoral vein; I82.431 Acute embolism and thrombosis of right popliteal vein; Z68.41 Body mass index [BMI] 40.0-44.9, adult; F17.210 Nicotine dependence, cigarettes, uncomplicated; E66.9 Obesity, unspecified; Z82.49 Family history of ischemic heart disease and other diseases of the circulatory system; I10 Essential (primary) hypertension; Z86.718 Personal history of other venous thrombosis and embolism; Z86.711 Personal history of pulmonary embolism; I51.9 Heart disease, unspecified; D69.6 Thrombocytopenia, unspecified
CPT/HCPCS: 36415; 71010; 71275; 80048; 80053; 80076; 82550; 82553; 82947; 83880; 84484; 85025; 85027; 85379; 85610; 85730; 87040; 87804; 93005; 93306; 93923; 93970; 94640; 94760; 96374; 99285; C1751; C1769; C1887; J1644; J2250; J2270; J2930; J2997; J3010; Q9967